=== PATIENT | male | born 1960 | race Caucasian/White ===

== ENCOUNTER 2019-06-02 22:45 | Inpatient (IN) | payer OTHER ==
[~2019-06-02] VITALS: Ht 182.9 cm; Wt 82.4 kg
[~2019-06-02 22:45] MED LIST: APIX5TAB PO; ASPI-817 PO; CLIN300C10 PO; FOLI-49 PO; GABA300C16 PO; GLIP10TA14 PO; HYDR-3601 PO; INSU100I12 SQ; INSU100I33 SC; LANT3I SC; LEVO750T8 PO; NOVO3I SC; NOVO7030 SC; NPH,100V SC; SACC250C PO; SIMV40TA2 PO; TRAM50TA PO
[2019-06-03 05:00] VITALS: BMI 25.6
[2019-06-03] MEDS ORDERED: DOCUSATE SODIUM 100 MG CAP PO PRN (05:00)
[2019-06-03] MEDS ORDERED: NACL 0.9% 3 ML SYG IV SCH (05:00)
[2019-06-03] MEDS ORDERED: VANCOMYCIN IV PER PHARMACY XX SCH (05:00)
[2019-06-03] MEDS ORDERED: HYDROCODONE/APAP (5/325) TAB PO PRN (05:00)
[2019-06-03] MEDS ORDERED: ONDANSETRON 4 MG INJ IV PRN (05:00)
[2019-06-03] MEDS ORDERED: BISACODYL (EC) 5 MG TAB PO PRN (05:00)
[2019-06-03 05:26] VITALS: BP 164/87; PULSE 66; RESP 18
[2019-06-03 05:29] VITALS: Ht 182.9 cm; Wt 82.4 kg
[2019-06-03] MEDS ORDERED: GLUCAGON 1 MG INJ IM PRN (05:30)
[2019-06-03] MEDS ORDERED: GLUCOSE GEL 15 GRAM TUBE PO PRN ×2 (05:30)
[2019-06-03] MEDS ORDERED: DEXTROSE 50% 50 ML SYRINGE IV PRN ×2 (05:30)
[2019-06-03] MEDS ORDERED: GLUCOSE GEL 15 GRAM TUBE BUCCAL PRN (05:30)
[2019-06-03 05:43] VITALS: BP 148/80; PULSE 70; RESP 18
[2019-06-03] MEDS: SOD CHLORIDE 0.9% 1,000 ML IV SCH ×2 (05:51→19:18)
[2019-06-03] MEDS: morphine 2 MG INJ IV PRN ×2 (05:59→20:36)
[2019-06-03] MEDS ORDERED: VANCOMYCIN 1.5 GM/NS 250 ML 250 ML IVPB ONE (06:00)
[2019-06-03] MEDS ORDERED: PIPER-TAZO 3.375 GM IV (PMX) 100 ML IVPB SCH (06:00)
[2019-06-03 07:37] VITALS: BP 147/70; PULSE 65; RESP 17
[2019-06-03] MEDS: GABAPENTIN 300 MG CAP PO SCH ×3 (08:53→20:35)
[2019-06-03] MEDS: INSULIN ASPART [NOVOLOG] 3 ML PEN SC SCH ×3 (08:53→18:05)
[2019-06-03] MEDS ORDERED: traZODone 50 MG TAB PO PRN (13:00)
[2019-06-03] MEDS: LEVOFLOXACIN 750MG/D5W (PMX) 150 ML IVPB SCH (13:36)
[2019-06-03 15:02] VITALS: BP 149/76; PULSE 82; RESP 18
[2019-06-03] MEDS: ENOXAPARIN 80 MG/0.8 ML SYG SC SCH ×2 (15:21→23:04)
[2019-06-03] MEDS ORDERED: INSULIN ASPART [NOVOLOG] 3 ML PEN SC SCH (17:05)
[2019-06-03] MEDS: Insulin NOVOLOG SS MILD Algorithm (SS with meals and bedtime) SC SCH ×2 (17:11→20:36)
[2019-06-03] MEDS: VANCOMYCIN 1 GM 250 ML IVPB SCH (18:04)
[2019-06-03 20:00] VITALS: BP 113/64; PULSE 72; RESP 18
[2019-06-03] MEDS: ATORVASTATIN 20 MG TAB PO SCH (20:35)
[2019-06-03] MEDS: INSULIN GLARGINE [LANTus] (100 UNITS/ML) SYG SC SCH (20:35)
[2019-06-03] MEDS ORDERED: NON-FORMULARY/PATIENT OWN MED (Simvastatin* (Zocor*) 40 MG) PO SCH (21:00)
[2019-06-04] MEDS: ACCUCHECK AT 2AM (Patients on SS coverage) XX SCH (01:34)
[2019-06-04 02:00] VITALS: BP 124/70; PULSE 66; RESP 18
[2019-06-04] MEDS ORDERED: ACCU-CHEK XX SCH (02:00)
[2019-06-04] MEDS: SOD CHLORIDE 0.9% 1,000 ML IV SCH ×2 (04:38→23:45)
[2019-06-04] MEDS: LEVOFLOXACIN 750MG/D5W (PMX) 150 ML IVPB SCH (04:39)
[2019-06-04] MEDS: VANCOMYCIN 1 GM 250 ML IVPB SCH ×2 (06:18→18:25)
[2019-06-04 07:43] VITALS: BP 112/60; PULSE 63; RESP 18
[2019-06-04] MEDS: Insulin NOVOLOG SS MILD Algorithm (SS with meals and bedtime) SC SCH ×4 (08:27→20:37)
[2019-06-04] MEDS: INSULIN ASPART [NOVOLOG] 3 ML PEN SC SCH ×3 (08:28→16:58)
[2019-06-04] MEDS: GABAPENTIN 300 MG CAP PO SCH ×3 (08:29→20:40)
[2019-06-04] MEDS: ENOXAPARIN 80 MG/0.8 ML SYG SC SCH ×2 (08:29→20:40)
[2019-06-04 08:30] VITALS: BP 125/70; PULSE 78
[2019-06-04 14:02] VITALS: BP 126/65; PULSE 61; RESP 16
[2019-06-04 20:00] VITALS: BP 149/82; PULSE 68; RESP 17
[2019-06-04] MEDS: ACETAMINOPHEN 325 MG TAB PO PRN (20:05)
[2019-06-04] MEDS: INSULIN GLARGINE [LANTus] (100 UNITS/ML) SYG SC SCH (20:39)
[2019-06-04] MEDS: ATORVASTATIN 20 MG TAB PO SCH (20:40)
[2019-06-05] MEDS: ACCUCHECK AT 2AM (Patients on SS coverage) XX SCH (01:59)
[2019-06-05 02:00] VITALS: BP 128/68; PULSE 64; RESP 17
[2019-06-05] MEDS: LEVOFLOXACIN 750MG/D5W (PMX) 150 ML IVPB SCH (05:46)
[2019-06-05] MEDS ORDERED: VANCOMYCIN 750 MG (PMX) 250 ML IVPB SCH ×2 (06:00)
[2019-06-05 07:41] VITALS: BP 138/75; PULSE 56; RESP 18
[2019-06-05] MEDS: ASPIRIN (EC) 81 MG TAB PO SCH (08:19)
[2019-06-05] MEDS: GABAPENTIN 300 MG CAP PO SCH ×3 (08:19→20:43)
[2019-06-05] MEDS: ENOXAPARIN 80 MG/0.8 ML SYG SC SCH ×2 (08:20→20:45)
[2019-06-05] MEDS: Insulin NOVOLOG SS MILD Algorithm (SS with meals and bedtime) SC SCH ×4 (08:21→20:41)
[2019-06-05] MEDS: INSULIN ASPART [NOVOLOG] 3 ML PEN SC SCH ×3 (08:22→17:16)
[2019-06-05] MEDS: SOD CHLORIDE 0.9% 1,000 ML IV SCH (14:03)
[2019-06-05 14:30] VITALS: BP 130/66; PULSE 64; RESP 18
[2019-06-05 19:49] VITALS: BP 170/95; PULSE 62; RESP 18
[2019-06-05] MEDS: INSULIN GLARGINE [LANTus] (100 UNITS/ML) SYG SC SCH (20:42)
[2019-06-05] MEDS: ATORVASTATIN 20 MG TAB PO SCH (20:43)
[2019-06-05] MEDS: ACETAMINOPHEN 325 MG TAB PO PRN (20:44)
[2019-06-05] MEDS: CLINDAMYCIN 600 MG/D5W (PMX) 50 ML IVPB SCH (21:24)
[2019-06-05 22:09] VITALS: BP 166/65; PULSE 66
[2019-06-05] MEDS: DEXTROSE 5%-0.45% NACL 1,000 ML IV SCH (23:10)
[2019-06-05 23:17] VITALS: BP 140/68; PULSE 62
[2019-06-06] MEDS: ACCUCHECK AT 2AM (Patients on SS coverage) XX SCH ×2 (01:08→22:48)
[2019-06-06] MEDS: INSULIN ASPART [NOVOLOG] 3 ML PEN SC SCH ×5 (01:10→17:12)
[2019-06-06 01:24] VITALS: BP_SYST 118; BP_SYST 124; BP_DIAS 58; BP_DIAS 66; PULSE 58; PULSE 66; RESP 17
[2019-06-06] MEDS: LEVOFLOXACIN 750MG/D5W (PMX) 150 ML IVPB SCH (04:34)
[2019-06-06] MEDS: CLINDAMYCIN 600 MG/D5W (PMX) 50 ML IVPB SCH ×3 (06:16→21:10)
[2019-06-06 07:28] VITALS: BP 146/77; PULSE 52; RESP 18
[2019-06-06] MEDS: ENOXAPARIN 80 MG/0.8 ML SYG SC SCH ×2 (08:50→20:33)
[2019-06-06] MEDS: ASPIRIN (EC) 81 MG TAB PO SCH (08:50)
[2019-06-06] MEDS: GABAPENTIN 300 MG CAP PO SCH ×3 (08:50→20:32)
[2019-06-06] MEDS ORDERED: ACETAMINOPHEN 1000MG/100ML IV 100 ML IVPB ONE (09:00)
[2019-06-06] MEDS ORDERED: INSULIN ASPART [NOVOLOG] 3 ML PEN SC SCH (11:15)
[2019-06-06] MEDS: ACETAMINOPHEN 325 MG TAB PO PRN (11:27)
[2019-06-06] MEDS: Insulin NOVOLOG SS MILD Algorithm (SS with meals and bedtime) SC SCH ×3 (12:48→20:29)
[2019-06-06] MEDS: DEXTROSE 5%-0.45% NACL 1,000 ML IV SCH (12:49)
[2019-06-06 14:00] VITALS: BP 136/67; PULSE 72; RESP 18
[2019-06-06 19:43] VITALS: BP 174/91; PULSE 63; RESP 18
[2019-06-06] MEDS: ATORVASTATIN 20 MG TAB PO SCH (20:32)
[2019-06-06] MEDS: INSULIN GLARGINE [LANTus] (100 UNITS/ML) SYG SC SCH (20:34)
[2019-06-06 21:09] VITALS: BP 149/86; PULSE 61; RESP 17
[2019-06-06 22:06] VITALS: BP 149/86; PULSE 65
[2019-06-07 02:05] VITALS: BP 131/69; PULSE 64; RESP 18
[2019-06-07] MEDS: DEXTROSE 5%-0.45% NACL 1,000 ML IV SCH ×2 (04:33→14:58)
[2019-06-07] MEDS: LEVOFLOXACIN 750MG/D5W (PMX) 150 ML IVPB SCH (04:33)
[2019-06-07] MEDS: CLINDAMYCIN 600 MG/D5W (PMX) 50 ML IVPB SCH ×3 (06:07→21:08)
[2019-06-07] MEDS: ASPIRIN (EC) 81 MG TAB PO SCH (07:56)
[2019-06-07] MEDS: GABAPENTIN 300 MG CAP PO SCH ×3 (07:56→20:18)
[2019-06-07] MEDS: Insulin NOVOLOG SS MILD Algorithm (SS with meals and bedtime) SC SCH ×4 (07:58→20:19)
[2019-06-07] MEDS: INSULIN ASPART [NOVOLOG] 3 ML PEN SC SCH ×3 (07:58→17:21)
[2019-06-07] MEDS: ENOXAPARIN 80 MG/0.8 ML SYG SC SCH ×2 (07:58→21:07)
[2019-06-07 08:00] VITALS: BP 154/83; PULSE 68; RESP 18
[2019-06-07 14:00] VITALS: BP 126/60; PULSE 66; RESP 18
[2019-06-07 20:00] VITALS: BP 150/78; PULSE 65; RESP 19
[2019-06-07] MEDS: ACETAMINOPHEN 325 MG TAB PO PRN (20:18)
[2019-06-07] MEDS: ATORVASTATIN 20 MG TAB PO SCH (20:18)
[2019-06-07] MEDS: INSULIN GLARGINE [LANTus] (100 UNITS/ML) SYG SC SCH (20:20)
[2019-06-07] MEDS ORDERED: APIXABAN 5 MG TABLET PO SCH (21:00)
[2019-06-07] MEDS: ACCUCHECK AT 2AM (Patients on SS coverage) XX SCH (21:12)
[2019-06-08] MEDS: DEXTROSE 5%-0.45% NACL 1,000 ML IV SCH (02:01)
[2019-06-08 02:13] VITALS: BP 128/62; PULSE 67; RESP 20
[2019-06-08] MEDS: LEVOFLOXACIN 750MG/D5W (PMX) 150 ML IVPB SCH (05:12)
[2019-06-08] MEDS: CLINDAMYCIN 600 MG/D5W (PMX) 50 ML IVPB SCH ×2 (06:48→14:00)
[2019-06-08 07:40] VITALS: BP 133/64; PULSE 59; RESP 18
[2019-06-08] MEDS: ASPIRIN (EC) 81 MG TAB PO SCH (08:04)
[2019-06-08] MEDS: GABAPENTIN 300 MG CAP PO SCH ×2 (08:04→12:03)
[2019-06-08] MEDS: INSULIN ASPART [NOVOLOG] 3 ML PEN SC SCH ×2 (08:05→12:06)
[2019-06-08] MEDS: ENOXAPARIN 80 MG/0.8 ML SYG SC SCH (08:05)
[2019-06-08] MEDS: Insulin NOVOLOG SS MILD Algorithm (SS with meals and bedtime) SC SCH ×2 (08:05→12:05)
[2019-06-08] MEDS: ACETAMINOPHEN 325 MG TAB PO PRN (12:07)
[2019-06-08 13:53] VITALS: BP 149/68; PULSE 67; RESP 18
== END 2019-06-08 16:00 | disposition home or self-care (01) | DRG 300 ==
LOC: 2NE 06-03 04:25 → MS3 06-03 05:38
PROVIDERS: ADMIT Family Medicine; ATTEND Family Medicine
DX: E11.52 Type 2 diabetes mellitus with diabetic peripheral angiopathy with gangrene (principal); I96 Gangrene, not elsewhere classified; M86.171 Other acute osteomyelitis, right ankle and foot; E11.69 Type 2 diabetes mellitus with other specified complication; E11.65 Type 2 diabetes mellitus with hyperglycemia; E11.621 Type 2 diabetes mellitus with foot ulcer; L97.519 Non-pressure chronic ulcer of other part of right foot with unspecified severity; E11.42 Type 2 diabetes mellitus with diabetic polyneuropathy; I10 Essential (primary) hypertension; Z59.0 Homelessness; G47.00 Insomnia, unspecified; Z86.718 Personal history of other venous thrombosis and embolism; Z79.02 Long term (current) use of antithrombotics/antiplatelets; Z79.4 Long term (current) use of insulin; E78.5 Hyperlipidemia, unspecified; I82.431 Acute embolism and thrombosis of right popliteal vein
CPT/HCPCS: 71045; 73718; 80048; 80061; 80202; 80307; 82565; 82962; 83036; 83735; 84100; 84443; 84520; 85025; 85610; 85651; 85730; 86140; 87081; 93005; 93922; 93970; J0131; J1815; J1956; J2270; J3370; J7030; J7042; L4386